=== PATIENT | female | born 1950 | race Caucasian/White ===

== ENCOUNTER → 2017-07-02 | Outpatient (CLI) | payer MEDICARE, OTHER ==
--- NOTE | 2017-07-03 10:13 | RADIOLOGY IMAGING REPORT ---
FACILITY: [facility] [place] PATIENT NAME: GENOVEVA GREEN : [id number] MR: [id number] V: [id number] EXAM DATE: ORDERING PHYSICIAN: JOSE MIGUEL LAZAR TECHNOLOGIST: Umm Jones PROCEDURE:BILATERAL DIGITAL SCREENING MAMMOGRAM WITH CAD ASSISTED INTERPRETATION & 3D TOMOSYNTHESIS COMPARISON:Prior mammograms 02/02/16, 01/13/15, 11/26/13, 12/03/12, 12/01/11, 10/17/10. INDICATIONS:screening FINDINGS: Moderately dense mildly heterogeneous fibroglandular tissue is seen throughout the breasts. The parenchymal pattern has remained stable allowing for difference in mammographic technique & patient positioning. There is no evidence of malignant appearing mass, malignant appearing calcifications or other secondary sign of malignancy in either breast. DIAGNOSTIC CATEGORY 1--NEGATIVE. RECOMMENDATIONS: ROUTINE MAMMOGRAM AND CLINICAL EVALUATION. IMPRESSION: BIRADS 1: Negative No significant abnormality is seen. Dictated by: Marija Hutchinson M.D. on 07/02/2017 at 16:00 Transcribed by: [email or web address] on 07/02/2017 at 16:13 Approved by: Marija Hutchinson M.D. on 07/03/2017 at 10:12 [facility]
== END ==
LOC: MAMO 01:34
PROVIDERS: ATTEND Obstetrics & Gynecology
DX: Z12.31 Encounter for screening mammogram for malignant neoplasm of breast (principal)
CPT/HCPCS: 77063; 77067